=== PATIENT | male | born 1970 | race American Indian/Alaskan Native ===

== ENCOUNTER 2018-08-07 14:45 | Emergency (ER) | payer SELFPAY ==
[2018-08-07] MEDS ORDERED: ZOFRAN IV ONE (16:08)
[2018-08-07] MEDS ORDERED: MORPHINE IV ONE (16:08)
[2018-08-07] MEDS ORDERED: SOLU-Medrol IV ONE (16:08)
--- NOTE | 2018-08-07 16:10 | Emergency Department Report ---
HPI - General Chief Complaint: Back Pain/Injury Time Seen by Provider: 08/07/18 16:01 - HPI HPI: 48-year-old male presents to the emergency department with complaint of pain starting in the right lateral lower back and radiating down his right leg, through the buttock, down to the calf. This has been going on for the past few days. The patient had this occur one time in the past when he fell off a roof while doing work. He was evaluated at that time was found to have some herniated disks in the lumbar spine. Patient denies any recent trauma but does say that he was working out at the gym recently just before his symptoms started. He denies any problems with bowel or bladder, numbness or paresthesias or any neurological deficits. It is a burning pain/sensation from the back to the leg. He otherwise just has a past nuchal history of hypertension. He tried some diclofenac for his discomfort without any relief. ED Past Medical Hx - Past Medical History Hx Hypertension: Yes - Surgical History Past Surgical History?: No - Social History Smoking Status: Never Smoker Substance Use Type: None - Medications Home Medications: Home Medications Medication Instructions Recorded Confirmed Last Taken Type RX: predniSONE [Deltasone] 20 mg PO BID #10 tab 08/07/18 Unknown Rx oxyCODONE /ACETAMINOPHEN [Percocet 1 tab PO Q6HR PRN #12 tablet 08/07/18 Unknown Rx 5/325] ED Review of Systems ROS: Stated complaint: LOWER BACK PAIN Other details as noted in HPI Comment: All other systems reviewed and negative Constitutional: denies: chills, fever Eyes: denies: eye pain, eye discharge, vision change ENT: denies: ear pain, throat pain Respiratory: denies: cough, shortness of breath, wheezing Cardiovascular: denies: chest pain, palpitations Gastrointestinal: denies: abdominal pain, vomiting Genitourinary: denies: dysuria, discharge Musculoskeletal: back pain, myalgia Skin: denies: rash, lesions Neurological: denies: weakness, numbness Physical Exam - Physical Exam Vital Signs: Vital Signs 08/07/18 14:46 Temperature 98.3 F Pulse Rate 81 Respiratory 18 Rate Blood Pressure 126/84 O2 Sat by Pulse 98 Oximetry Physical Exam: GENERAL: The patient is well-developed well-nourished. HEENT: Normocephalic. Atraumatic. Patient has moist mucous membranes. EYES: Extraocular motions are intact. Pupils are equal and reactive to light bilaterally. NECK: Supple. Trachea is midline. CHEST/LUNGS: Clear to auscultation. There is no respiratory distress noted. HEART/CARDIOVASCULAR: Regular. There is no tachycardia. There is no obvious murmur. ABDOMEN: Abdomen is soft, nontender. Patient has normal bowel sounds. Obese habitus. SKIN: Skin is warm and dry. NEURO: The patient is awake, alert, and oriented. The patient is cooperative. The patient has no focal neurologic deficits. The patient has normal speech. MUSCULOSKELETAL: Right leg pain is not reproducible to palpation but it does worsen with both passive and active movement. Positive right straight leg raise test. BACK: There is both midline and right-sided paraspinal lumbar tenderness to palpation but no step-off or deformity. ED Course Vital Signs 08/07/18 14:46 Temperature 98.3 F Pulse Rate 81 Respiratory 18 Rate Blood Pressure 126/84 O2 Sat by Pulse 98 Oximetry ED Medical Decision Making - Radiology Data Radiology results: report reviewed EXAM: XR SPINE LUMBOSACRAL 2-3V HISTORY: low back pain TECHNIQUE: Lumbar spine three views PRIORS: None. FINDINGS: There is degenerative disc space narrowing at L4-5 and L5-S1 with marginal anterior vertebral body osteophytes. The vertebral bodies are normal in height and alignment. Remaining disc spaces are within normal limits. Posterior elements are intact. SI joints are unremarkable IMPRESSION: Degenerative disc disease L4-5 and L5-S1 with marked disc space narrowing Transcribed By: PIEDAD Dictated By: YOCASTA LEVIN MD Electronically Authenticated By: YOCASTA LEVIN MD Signed Date/Time: 08/07/18 9414 - Medical Decision Making Patient presents with a few days of right-sided low back pain with radiation down the right leg that appears consistent with a sciatica and peripheral neuropathy/radiculopathy. There is been no recent trauma but the patient did have trauma in the past that originally caused the same kind of pain. An x-ray was done that shows some degenerative joint disease but otherwise no other acute process. Patient was given some steroids and a few doses of pain medication with some improvement in his symptoms. The symptoms were worsened with bearing weight so the patient was given crutches and was able to ambulate using the crutches around the emergency department and appeared stable. He has no problems with bowel or bladder, numbness or paresthesias or any neurological deficits. He appears lower suspicion for any of the emergent back conditions such as cauda equina or epidural abscess or cord compression syndrome. The patient has been given a prescription for some steroids, pain medication and has been given a referral for both orthopedist and neurosurgery. He will follow up with these doctors, as well as his primary care physician, but he will return to the ER with any worsening of his symptoms or any acute distress. - Differential Diagnosis sciatica, peripheral neuropathy, herniated disc Critical Care Time: No Critical care attestation.: If time is entered above; I have spent that time in minutes in the direct care of this critically ill patient, excluding procedure time. ED Disposition Clinical Impression: Right leg pain Low back pain Qualifiers: Chronicity: acute Back pain laterality: right Sciatica presence: with sciatica Sciatica laterality: sciatica of right side Qualified Code(s): M54.41 - Lumbago with sciatica, right side Sciatica Qualifiers: Laterality: right Qualified Code(s): M54.31 - Sciatica, right side Degenerative joint disease (DJD) of lumbar spine Qualifiers: Spinal osteoarthritis complication: unspecified spinal osteoarthritis Qualified Code(s): M47.816 - Spondylosis without myelopathy or radiculopathy, lumbar region Disposition: DC-01 TO HOME OR SELFCARE Is pt being admited?: No Condition: Stable Instructions: Sciatica (ED), Lumbar Radiculopathy (ED) Additional Instructions: Please follow up with either an orthopedist or neurosurgeon regarding your low back pain, leg pain and sciatica. Return to the emergency Department with any worsening of your symptoms or any acute distress. You have been prescribed a medication that can be sedating. Therefore, this medication cannot be taken prior to driving, working, being responsible for children, and cannot be mixed with alcohol of any quantity. Prescriptions: oxyCODONE /ACETAMINOPHEN [Percocet 5/325] 1 tab PO Q6HR PRN #12 tablet PRN Reason: Pain RX: predniSONE [Deltasone] 20 mg PO BID #10 tab Referrals: [facility] [Provider Group] - 2-3 Days [facility], [Primary Care Provider] - 2-3 Days MICHELLE PEREZ MD [Staff Physician] - 2-3 Days
[2018-08-07] MEDS ORDERED: DILAUDID IV ONE (17:25)
--- NOTE | 2018-08-07 17:53 | XRay Report ---
FINAL REPORT EXAM: XR SPINE LUMBOSACRAL 2-3V HISTORY: low back pain TECHNIQUE: Lumbar spine three views PRIORS: None. FINDINGS: There is degenerative disc space narrowing at L4-5 and L5-S1 with marginal anterior vertebral body os teophytes. The vertebral bodies are normal in height and alignment. Remaining disc spaces are within normal limits. Posterior elements are intact. SI joints are unremarkable IMPRESSION: Degenerative disc disease L4-5 and L5-S1 with marked disc space narrowing
[2018-08-07 18:19] VITALS: BP 120/59
== END 2018-08-07 19:44 | disposition home or self-care (01) ==
LOC: ED 14:45
DX: M47.816 Spondylosis without myelopathy or radiculopathy, lumbar region (principal); M54.41 Lumbago with sciatica, right side; M79.604 Pain in right leg; I10 Essential (primary) hypertension
CPT/HCPCS: 72100; 96374; 96375; 99284; J1170; J2270; J2405; J2930